=== PATIENT | female | born 1990 | race Caucasian/White ===

== ENCOUNTER 2017-12-05 19:23 | Inpatient (IN) | payer OTHER ==
[2017-12-05] VITALS (8 sets, daily range): BP systolic 117–183; BP diastolic 61–84
[~2017-12-05 19:23] MED LIST: LINEZOLID600 MG PO
[2017-12-05 22:32] LABS: BASOPHIL (%) 0.1 % (0-1); EOSINOPHIL (%) 0 % (0-5); HEMATOCRIT 32.3 % (36.0-46.0); HEMOGLOBIN 10.7 G/DL (11.9-15.5); IMMATURE GRANULOCYTE (%) 0.4 % (0.0-0.7); LYMPHOCYTE (%) 9.2 % (15-42); LYMPHOCYTE COUNT 1.5 K/uL (1.0-2.8); MCH 28.9 PG (29.0-34.0); MCHC 33.1 G/DL (30.0-36.0); MCV 87.3 FL (83-99); MONOCYTE (%) 3.4 % (3-12); MONOCYTE COUNT 0.6 K/uL (0-0.8); NEUTROPHIL (%) 86.9 % (45-76); NEUTROPHIL COUNT 14.1 K/uL (1.8-6.4); PLATELET COUNT 220 K/uL (156-360); RBC DIS.WIDTH-CV 13.7 % (11.8-14.6); RBC DIS.WIDTH-SD 43.5 % (39-53); WHITE BLOOD COUNT 16.3 K/uL (4.1-10.2)
[2017-12-05 23:00] LABS: ANTI-HIV (AIDS STAT TEST) NONREACTIVE
[2017-12-05 23:11] LABS: ALBUMIN 2.6 G/DL (3.2-4.8); ALKALINE PHOSPHATASE 182 IU/L (3-129); ALT (GPT) 29 IU/L (3-49); AST (GOT) 34 IU/L (2-34); CHLORIDE 105 MEQ/L (99-109); CREATININE 0.5 MG/DL (0.6-1.3); DIRECT BILIRUBIN 0.3 mg/dL (0.0-0.3); GFR ESTIMATE (CALCULATED) > 59 mL/min/; GLUCOSE 133 mg/dL (70-99); POTASSIUM 3.7 MEQ/L (3.7-5.4); SODIUM 135 MEQ/L (136-147); TOTAL BILIRUBIN 0.6 MG/DL (0.0-1.0); TOTAL PROTEIN 5.5 G/DL (6.4-8.3); UREA NITROGEN (BUN) 9 mg/dL (9-23)
[2017-12-06 03:48] VITALS: BP 133/75
[2017-12-06 04:44] LABS: AMPHETAMINE NEGATIVE (500 ng/mL); BARBITURATES NEGATIVE (200 ng/mL); BENZODIAZEPINES NEGATIVE (150 ng/mL); BUPRENORPHINE NEGATIVE (10 ng/mL); COCAINE PRESUMPTIVE POSITIVE (150 ng/mL); METHADONE NEGATIVE (200 ng/mL); METHAMPHETAMINE NEGATIVE (500 ng/mL); OPIATES (MORPHINE) PRESUMPTIVE POSITIVE (100 ng/mL); OXYCODONE NEGATIVE (100 ng/mL); PHENCYCLIDINE NEGATIVE (25 ng/mL); PROPOXYPHENE NEGATIVE (300 ng/mL); THC CANNABINOIDS NEGATIVE (50 ng/mL); TRICYCLIC ANTIDEPRESSANTS NEGATIVE (300 ng/mL)
[2017-12-06 07:28] VITALS: BP 130/89
[2017-12-06 09:31] LABS: HEMOGLOBIN A1c (GLYCOHEMOGLOB) 5.2 % (Below 5.7)
[2017-12-06 09:44] LABS: TREPONEMA ANTIBODY NEGATIVE (NEGATIVE)
[2017-12-06 11:52] LABS: HEPATITIS B SURFACE ANTIGEN Nonreactive; HIV-1/2 AB/AG COMBO Nonreactive
[2017-12-08 11:10] LABS: HCV RNA (LOG IU/mL) 6.58 (())
== END 2017-12-06 13:43 | disposition left against medical advice (07) | DRG 774 ==
LOC: EME 19:23 → EDSTATUS 19:34 → LDRP-OP 19:35 → 2WEST 19:36
PROVIDERS: Advanced Practice Midwife
DX: O99.324 Drug use complicating childbirth (principal); F11.23 Opioid dependence with withdrawal; T40.1X1A Poisoning by heroin, accidental (unintentional), initial encounter; R61 Generalized hyperhidrosis; R52 Pain, unspecified; R25.8 Other abnormal involuntary movements; O77.0 Labor and delivery complicated by meconium in amniotic fluid; O70.0 First degree perineal laceration during delivery; O62.3 Precipitate labor; O76 Abnormality in fetal heart rate and rhythm complicating labor and delivery; O98.42 Viral hepatitis complicating childbirth; B19.20 Unspecified viral hepatitis C without hepatic coma; O99.334 Smoking (tobacco) complicating childbirth; F17.200 Nicotine dependence, unspecified, uncomplicated; Z3A.39 39 weeks gestation of pregnancy; Z37.0 Single live birth; Z86.14 Personal history of Methicillin resistant Staphylococcus aureus infection
CPT/HCPCS: 80053; 81003; 82248; 83036; 84999; 85025; 86762; 86780; 86900; 86901; 87070; 87075; 87076; 87077; 87081; 87086; 87185; 87186; 87205; 87340; 87389; 87522 90; 87641; 88307; J2590